=== PATIENT | female | born 1950 | race Caucasian/White ===

== ENCOUNTER 2016-07-16 08:21 | Outpatient (CLI) | payer MEDICARE, BC ==
--- NOTE | 2016-07-17 12:04 | Mammography Report ---
DIGITAL BILATERAL SCREENING MAMMOGRAM: 07/16/2016 CLINICAL HISTORY: A 66-year-old female in for routine screening mammogram. Patient has no family history of breast cancer. Patient has had prior breast surgery. Patient has had a left breast biopsy in approximately 1999. Patient has breast implants and had also implant replacement surgery. Patient has bilateral breast prostheses. COMPARISON: 02/18/2007, 02/08/2008, 03/01/2008, 09/13/2008, 02/07/2009, 2009, 04/11/2010, 05/14/2011, 05/12/2012 TECHNIQUE: Craniocaudad and oblique lateral views of each breast were obtained with Hologic Full Field digital mammography. To compliment the exam, bilateral Fadia views were done in craniocaudad and oblique lateral positions. FINDINGS: Bilateral retropectoral silicone breast prostheses are present. Moderately dense breasts are noted. Some small scattered calcifications are present in the breasts most likely a result of focal fat necrosis. The patient has had her implants replaced and, therefore, has had surgeries involving both breasts in addition to her left breast biopsy surgery. Portions of the breast parenchyma especially on the right show some small focal areas of density adjacent to some of the calcifications. These may represent scarring related to prior surgery or small silicone granulomas. There are also two small densities in the left axilla, one of which may represent a small silicone granuloma. There are also some faint densities resembling calcifications along the posterior, medial, and lateral aspect of the right breast that probably represents small silicone particles. These should be followed with annual mammography to further confirm their benign etiology. No significant masses are detected. IMPRESSION: 1. BILATERAL RETROGLANDULAR SILICONE BREAST PROSTHESES ARE NOTED. 2. SMALL CALCIFICATIONS ARE NOTED IN THE BREASTS IN ASSOCIATION WITH SOME REACTION ADJACENT TO THEM. THESE ARE MORE NUMEROUS IN THE RIGHT BREAST. THESE MAY REPRESENT SMALL SILICONE GRANULOMAS OR FAT NECROSIS A RESULT OF PRIOR IMPLANT REPLACEMENT SURGERY. BIRADS 2 - BENIGN. RECOMMENDATIONS: Annual bilateral screening mammography. STANDARD QUALIFYING STATEMENTS 1. This examination was reviewed with the aid of Computer-Aided Detection (CAD). 2. A negative or benign imaging report should not delay biopsy if clinically suspicious findings are present. Consider surgical consultation if warranted. More than 5% of cancers are not identified by imaging. 3. Dense breasts may obscure an underlying neoplasm. JOB #: [id number] EXT JOB #: [id number] MANUELA
== END 2016-07-16 08:22 | disposition home or self-care (01) ==
LOC: DI 08:21
PROVIDERS: ATTEND Internal Medicine
DX: Z12.31 Encounter for screening mammogram for malignant neoplasm of breast (principal); Z98.82 Breast implant status
CPT/HCPCS: 77067; 93005

== ENCOUNTER 2016-08-06 08:43 | Outpatient (CLI) | payer MEDICARE, BC ==
--- NOTE | 2016-08-06 15:01 | DEXA Report ---
DEXA SCAN: 08/06/2016 CLINICAL INDICATION: Postmenopausal. TECHNIQUE: Dual energy x-ray absorptiometry (DXA) was performed on a [employer] system. Regions measured are the AP spine, femoral neck, and, if needed, forearm. COMPARISON: None. In accordance with the International Society for Clinical Densitometry (ISCD) guidelines, data from previous exams may be reanalyzed using current recommendations and techniques. This is done to allow a more accurate basis for comparison with the current study. FINDINGS: The data for the lumbar spine is as follows: REGION BMD (g/cm/cm) T-SCORE Z-SCORE L1 0.928 -1.7 0.1 L2 1.185 -0.1 1.7 L3 1.184 -0.1 1.7 L4 1.291 0.8 2.6 TOTAL 1.151 -0.2 1.6 NOTE: All evaluable vertebrae are used for classification. The data for the hip is as follows: REGION BMD (g/cm/cm) T-SCORE Z-SCORE Neck 0.745 -2.1 -0.5 TOTAL 0.705 -2.4 -1.0 NOTE: The femoral neck or total proximal femur, whichever is lowest, is used for classification. IMPRESSION: THE WHO CLASSIFICATION BASED ON THE INTERNATIONAL REFERENCE STANDARD IS OSTEOPENIA. THE FRACTURE RISK IS INCREASED. RECOMMENDATION: Patients with diagnosis of osteoporosis or osteopenia should have regular bone mineral density assessment. For those eligible for Medicare, routine testing is allowed once every 2 years. Testing frequency can be increased for patients who have rapidly progressing disease or for those who are receiving medical therapy to restore bone mass. COMMENT: World Health Organization (WHO) definitions for osteoporosis and osteopenia: NORMAL BMD: T-score at -1.0 or higher, fracture risk is low. OSTEOPENIA BMD: T-score between -1.0 and -2.5, fracture risk is increased. OSTEOPOROSIS BMD: T-score at -2.5 or lower, fracture risk high. National Osteoporosis Foundation recommends: 1. Obtain adequate dietary calcium (at least 1200 mg per day) and vitamin D (400 -800 international units per day). 2. Participate, as appropriate, in regular weightbearing and muscle- strengthening exercise. 3. Avoid tobacco use and reduce alcohol and caffeine intake. 4. For more detailed information see the website at www.NOF.org. MTDD
== END 2016-08-06 08:44 | disposition home or self-care (01) ==
LOC: RT 08:43
PROVIDERS: ATTEND Internal Medicine
DX: Z13.820 Encounter for screening for osteoporosis (principal); M85.88 Other specified disorders of bone density and structure, other site; N95.8 Other specified menopausal and perimenopausal disorders; Z13.6 Encounter for screening for cardiovascular disorders
CPT/HCPCS: 77080; 93005

== ENCOUNTER 2017-10-14 09:42 | Outpatient (CLI) | payer MEDICARE, BC | END 2017-10-14 09:43 | disposition home or self-care (01) | LOC: RT 09:42 → DI 09:43 | PROVIDERS: ATTEND Internal Medicine | DX: Z01.810 Encounter for preprocedural cardiovascular examination (principal); Z13.6 Encounter for screening for cardiovascular disorders | CPT/HCPCS: 93005 ==

== ENCOUNTER 2017-11-13 09:24 | Outpatient (CLI) | payer MEDICARE, BC ==
--- NOTE | 2017-11-21 15:08 | Mammography Report ---
Reason: BILAT SCREEN IMPLANTS WITH BRISSA Procedure Date: 11/13/2017 Accession Number: [id number] / [id number] Procedure: DA - Screening Mammo Impl w/Brissa CPT Code: FULL RESULT: EXAM: Screening Mammo Impl w/Brissa DATE: 11/13/2017 10:40 AM CLINICAL HISTORY: 67 year-old nulliparous female with history of early menses and treatment of a left silicone granuloma. TECHNIQUE: Bilateral implant displaced CC and MLO views as well as bilateral CC and MLO views were obtained. COMPARISON: 07/16/2016, 05/12/2012, 05/14/2011, 04/11/2010. FINDINGS: The breasts demonstrate heterogeneously dense fibroglandular parenchyma bilaterally. Bilateral stable appearing prepectoral silicone implants are again demonstrated. There are bilateral typically benign coarse calcifications which are stable. Stable hyperdense nodules predominantly on the right with a have been proven to be silicone granuloma are redemonstrated. No suspicious masses, clustered microcalcifications, or regions of architectural distortion are identified. IMPRESSION: Benign findings RECOMMENDATION: Routine annual screening unless otherwise clinically indicated. BIRADS CATEGORY 2: Benign findings STANDARD QUALIFYING STATEMENTS: 1. This examination was not reviewed with the aid of Computer-Aided Detection (CAD). 2. A negative or benign imaging report should not delay biopsy if clinically suspicious findings are present. Consider surgical consultation if warrented. More than 5% of cancers are not identified by imaging. 3. Dense breasts may obscure an underlying neoplasm. 4. This examination was reviewed with the aid of 3D breast imaging (tomosynthesis).
== END 2017-11-13 09:25 | disposition home or self-care (01) ==
LOC: DI 09:24
PROVIDERS: ATTEND Radiology Diagnostic Radiology
DX: Z12.31 Encounter for screening mammogram for malignant neoplasm of breast (principal); Z98.82 Breast implant status
CPT/HCPCS: 77063; 77067

== ENCOUNTER 2017-11-13 11:08 | Outpatient (CLI) | payer MEDICARE, BC ==
--- NOTE | 2017-11-13 13:58 | XRAY Report ---
Reason: ENCOUNTER FOR OTHER SPECIFIED SPECIAL EXAMINATIONS Procedure Date: 11/13/2017 Accession Number: [id number] / [id number] Procedure: XR - Chest 2 View X-Ray CPT Code: 55413 FULL RESULT: EXAM: CHEST RADIOGRAPHY EXAM DATE: 11/13/2017 11:44 AM. CLINICAL HISTORY: ENCOUNTER FOR OTHER SPECIFIED SPECIAL EXAMINATIONS. COMPARISON: None. TECHNIQUE: 2 views. FINDINGS: Lungs/Pleura: Possible nodule right lower lung field versus anterior rib. No focal opacities evident. No pleural effusion. No pneumothorax. Normal volumes. Right apical pleural thickening. Mediastinum: Heart and mediastinal contours are unremarkable. Other: Dextroscoliosis IMPRESSION: Possible nodule right lower lung versus anterior rib RADIA
== END 2017-11-13 11:09 | disposition home or self-care (01) ==
LOC: DI 11:08
PROVIDERS: ATTEND Internal Medicine
DX: Z01.89 Encounter for other specified special examinations (principal); Z13.6 Encounter for screening for cardiovascular disorders; N64.59 Other signs and symptoms in breast; T85.9XXA Unspecified complication of internal prosthetic device, implant and graft, initial encounter
CPT/HCPCS: 71046

== ENCOUNTER 2018-03-19 08:32 | Outpatient (CLI) | payer MEDICARE, BC ==
--- NOTE | 2018-03-19 12:28 | XRAY Report ---
Reason: SOLITARY PULMONARY NODULE Procedure Date: 03/19/2018 Accession Number: [id number] / [id number] Procedure: XR - Chest 2 View X-Ray CPT Code: 35694 FULL RESULT: EXAM: CHEST RADIOGRAPHY EXAM DATE: 03/19/2018 08:53 AM. CLINICAL HISTORY: POSSIBLE SOLITARY PULMONARY NODULE. COMPARISON: Chest 11/13/2017. TECHNIQUE: 2 views. FINDINGS: Lungs/Pleura: Again seen is a nodular density about the lower right lung. It is somewhat ill-defined and difficult to measure. It appears without change, however. No pneumothorax or pleural effusion. Lung volumes are somewhat large. Mediastinum: Heart and mediastinal contours are unremarkable. There is lateral curvature of the thoracolumbar spine. IMPRESSION: Right lower lung nodule versus rib. No change compared to 11/13/2017. May consider follow-up, for example October 2018. Large lung volumes may be on the basis of COPD. RADIA
== END 2018-03-19 08:33 | disposition home or self-care (01) ==
LOC: DI 08:32
PROVIDERS: ATTEND Internal Medicine
DX: R91.1 Solitary pulmonary nodule (principal)
CPT/HCPCS: 71046

== ENCOUNTER 2018-12-07 09:46 | Outpatient (CLI) | payer MEDICARE, BC ==
[2018-12-07 11:09] LABS: VBG PH 7.39 (7.31-7.41)
[2018-12-07 11:10] LABS: EOSINOPHILS # (AUTO) 0.1 10^3/uL (0.0-0.7); EOSINOPHILS % (AUTO) 2.3 %; HGB - HEMOGLOBIN 12.8 g/dL (12.0-16.0); LYMPHOCYTES # (AUTO) 1.7 10^3/uL (1.5-3.5); LYMPHOCYTES % (AUTO) 45.4 %; MEAN CORPUSCULAR HEMOGLOBIN 29.9 pg (27.0-31.0); MEAN CORPUSCULAR VOLUME 93.5 fL (81.0-99.0); MONOCYTES # (AUTO) 0.4 10^3/uL (0.0-1.0); MONOCYTES % (AUTO) 10.7 %; NEUTROPHILS # (AUTO) 1.6 10^3/uL (1.5-6.6); NEUTROPHILS % (AUTO) 40.6 %; PLT - PLATELET COUNT 285 10^3/uL (130-450); RED BLOOD COUNT 4.28 10^6/uL (4.20-5.40); RED CELL DISTRIBUTION WIDTH 12.8 % (12.0-15.0); WHITE BLOOD COUNT 3.8 x10^3/uL (4.8-10.8)
[2018-12-07 11:19] LABS: ALBUMIN 4.5 g/dL (3.2-5.5); ALBUMIN/GLOBULIN RATIO 1.6 (1.0-2.2); BILIRUBIN,TOTAL 0.5 mg/dL (0.2-1.0); CALCIUM 9.6 mg/dL (8.5-10.3); CREATININE 0.6 mg/dL (0.4-1.0); TOTAL PROTEIN 7.4 g/dL (6.7-8.2)
== END 2018-12-07 09:47 | disposition home or self-care (01) ==
LOC: LAB.S 09:46 → LAB 09:47
PROVIDERS: ATTEND Internal Medicine
DX: E83.52 Hypercalcemia (principal)
CPT/HCPCS: 36415; 80053; 82306; 82330; 83519; 83970; 85025

== ENCOUNTER 2019-03-13 12:30 | Outpatient (CLI) | payer MEDICARE, BC ==
--- NOTE | 2019-03-14 14:23 | XRAY Report ---
Reason: SCOLIOSIS Procedure Date: 03/13/2019 Accession Number: [id number] / [id number] Procedure: XR - Lumbar Spine 2 View CPT Code: Final Report FULL RESULT: EXAM: LUMBAR SPINE RADIOGRAPHY EXAM DATE: 03/13/2019 01:11 PM HISTORY: SCOLIOSIS. COMPARISON: XR LUMBAR SPINE 2 OR 3 VIEWS 09/21/2009 1:08 PM TECHNIQUE: AP and Lateral two view exam FINDINGS: Moderate to severe convex left scoliosis centered at the L1-L2 level. There is corresponding diffuse degenerative disk disease with disk space narrowing most prominent at the concave margin of the upper lumbar spine and concave aspect of the lower lumbar spine. Moderate to large osteophyte formation is seen. Endplate sclerotic changes are noted. There has been significant progression of disease since the previous exam. There is probably moderate to severe facet osteoarthritis from L3-S1. No definitive acute fracture but there is some suggestion of a compression deformity of L2. If there is concern for acute fracture, CT should be done. IMPRESSION: Progressive scoliosis and diffuse degenerative disk disease. Mild compression deformity at L2 is probably old but there is limited visualization because of positioning and degenerative changes. Consider CT follow-up if clinically warranted. RADIA
--- NOTE | 2019-03-14 14:48 | XRAY Report ---
Reason: SCOLIOSIS Procedure Date: 03/13/2019 Accession Number: [id number] / [id number] Procedure: XR - Thoracic Spine 2 View CPT Code: Final Report FULL RESULT: EXAM: THORACIC SPINE RADIOGRAPHY EXAM DATE: 03/13/2019 01:09 PM HISTORY: SCOLIOSIS. TECHNIQUE: AP and lateral two view exam COMPARISON: CHEST 2 VIEW 03/19/2018 8:38 AM FINDINGS: Mild upper thoracic dextroconvexity noted with the apex centered at T5. There is some straightening of the thoracic kyphosis through most of the thoracic spine with mild kyphosis noted at the thoracolumbar level. Moderate thoracolumbar levo convexity seen with the apex centered at L1-L2. No apparent thoracic vertebral body fracture. There is probably mild diffuse disk space narrowing of the mid to lower thoracic levels. Assessment is somewhat limited because of curvature. Other: None. IMPRESSION: -Mild upper to mid thoracic dextroconvexity. - Moderate thoracolumbar levo convexity. -Mild mid to lower thoracic degenerative disk disease. RADIA
== END 2019-03-13 12:31 | disposition home or self-care (01) ==
LOC: DI 12:30
PROVIDERS: ATTEND Internal Medicine
DX: M47.816 Spondylosis without myelopathy or radiculopathy, lumbar region (principal); M47.817 Spondylosis without myelopathy or radiculopathy, lumbosacral region; M51.36 Other intervertebral disc degeneration, lumbar region; M41.9 Scoliosis, unspecified; M43.8X6 Other specified deforming dorsopathies, lumbar region; M51.34 Other intervertebral disc degeneration, thoracic region
CPT/HCPCS: 72070; 72100

== ENCOUNTER 2019-08-21 11:51 | Outpatient (CLI) | payer MEDICARE, BC ==
--- NOTE | 2019-08-21 18:55 | XRAY Report ---
PROCEDURE: Foot 2 View LT INDICATIONS: LT FOOT PAIN TECHNIQUE: 2 views of the foot were acquired. COMPARISON: None FINDINGS: Bones: No fractures or dislocations. No suspicious bony lesions. Soft tissues: No tibiotalar joint effusion. Achilles tendon appears normal. IMPRESSION: No evidence acute bony abnormality of the left foot. Reviewed by: Arnold Zapata MD on 08/21/2019 5:54 PM KEL Approved by: Arnold Zapata MD on 08/21/2019 5:54 PM KEL Station ID: [id number]
== END 2019-08-21 11:52 | disposition home or self-care (01) ==
LOC: DI 11:51
PROVIDERS: ATTEND Internal Medicine
DX: M79.672 Pain in left foot (principal)

== ENCOUNTER 2020-06-14 12:53 | Outpatient (CLI) | payer MEDICARE, BC ==
--- NOTE | 2020-06-20 10:15 | DEXA Report ---
PROCEDURE: Dexa Spine and/or Hip INDICATIONS: OSTEOPOROSIS: FOREARM INCLUDED TECHNIQUE: Dual energy x-ray absorptiometry (DXA) was performed on a [employer] System. Regions measur ed are the AP Spine, femoral neck, and if needed forearm. COMPARISON: None. FINDINGS: Left forearm included secondary to lumbar scoliosis and degenerative discogenic changes Left Femoral Neck: Bone Mineral Density 0.760 g/cm/cm, T score -2.0, Left forearm: Radius bone Mineral Density 0.5-0 g/cm/cm, T score -2.5, (T score greater or equal to -1.0: NORMAL) (T score from -1.1 to -2.4: OSTEOPENIA) (T score less than or equal to -2.5 to: OSTEOPOROSIS) Impression: Osteoporosis Patients with diagnosis of osteoporosis or osteopenia should have regular bone mineral density assess ment. For those eligible for Medicare, routine testing is allowed once every 2 years. Testing frequ ency can be increased for patients who have rapidly progressing disease or for those who are receivin g medical therapy to restore bone mass. Reviewed by: Antony Solis MD on 06/14/2020 2:01 PM PDT Approved by: Antony Solis MD on 06/14/2020 2:01 PM PDT Station ID: [id number]
== END 2020-06-14 12:54 | disposition home or self-care (01) ==
LOC: DI 12:53
PROVIDERS: ATTEND Internal Medicine
DX: M81.0 Age-related osteoporosis without current pathological fracture (principal)

== ENCOUNTER 2020-06-14 12:55 | Outpatient (CLI) | payer MEDICARE, BC ==
--- NOTE | 2020-06-15 11:11 | Mammography Report ---
BILATERAL DIGITAL SCREENING MAMMOGRAM 3D/2D WITH AUGMENTATION: 06/14/2020 CLINICAL: Routine screening. Comparison is made to exams dated: 11/13/2017 mammogram, 07/16/2016 mammogram, and 05/12/2012 mammogram - [facility]. There are scattered fibroglandular elements in both breasts. Bilateral breast implants are present. No significant masses, calcifications, or other findings are seen in either breast. There has been no significant interval change. IMPRESSION: NEGATIVE There is no mammographic evidence of malignancy. A 1 year screening mammogram is recommended. This exam was interpreted at Station ID: [id number]. NOTE: For mammograms, a report in lay terms will be sent to the patient. Approximately 15% of breast malignancies will not be visualized mammographically. In the management of a palpable breast mass, a negative mammogram must not discourage biopsy of a clinically suspicious lesion. Electronically Signed By: Hima Torres M.D. ar/penrad:06/14/2020 14:41:09 ACR BI-RADS Category 1: Negative 3341F PARENCHYMAL PATTERN: (A) - The breast(s) demonstrate(s) scattered fibroglandular densities. BI-RADS CATEGORY: (1) - 1 RECOMMENDATION: (ANNUAL) - Recommend routine annual screening mammography. [id number] 1 year screening LATERALITY: (B)
== END 2020-06-14 12:56 | disposition home or self-care (01) ==
LOC: DI 12:55
PROVIDERS: ATTEND Internal Medicine
DX: Z12.31 Encounter for screening mammogram for malignant neoplasm of breast (principal)

== ENCOUNTER 2020-11-16 13:09 | Outpatient (CLI) | payer MEDICARE, BC ==
--- NOTE | 2020-11-16 14:03 | XRAY Report ---
PROCEDURE: Foot 3 View LT INDICATIONS: FOOT PAIN, LEFT TECHNIQUE: 3 views of the foot were acquired. COMPARISON: X-ray ankle 11/16/2020 FINDINGS: Bones: No fractures or dislocations. No suspicious bony lesions. Soft tissues: No tibiotalar joint effusion. Achilles tendon appears normal. IMPRESSION: No visualized acute fracture or dislocation. However, occult injury cannot be excluded. Recommend gail rt interval imaging follow-up in 7-10 days as clinically indicated for additional evaluation. Reviewed by: Rachael Valerio MD on 11/16/2020 2:02 PM PDT Approved by: Rachael Valerio MD on 11/16/2020 2:02 PM PDT Station ID: [id number]
--- NOTE | 2020-11-16 14:28 | XRAY Report ---
PROCEDURE: Ankle 3 View LT INDICATIONS: FOOT PAIN, LEFT TECHNIQUE: 3 views of the ankle were acquired. COMPARISON: None FINDINGS: Bones: Nondisplaced fracture to the distal fibular metaphysis noted. Minimal soft tissue in the fract ure line noted. No soft tissue swelling. Ankle mortise is maintained. Soft tissues: No tibiotalar joint effusion. Achilles tendon appears normal. IMPRESSION: Nondisplaced distal fibular fracture without soft tissue swelling probably reflects suba cute fracture. Reviewed by: Amanuel Ohara MD on 11/16/2020 1:27 PM KEL Approved by: Amanuel Ohara MD on 11/16/2020 1:27 PM KEL Station ID: [id number]
== END 2020-11-16 23:59 | disposition home or self-care (01) ==
LOC: DI.S 13:09
PROVIDERS: ATTEND Physician Assistant Medical
DX: S82.832A Other fracture of upper and lower end of left fibula, initial encounter for closed fracture (principal)

== ENCOUNTER 2022-10-09 13:20 | Outpatient (CLI) | payer MEDICARE, BC ==
--- NOTE | 2022-10-10 12:25 | Mammography Report ---
BILATERAL DIGITAL SCREENING MAMMOGRAM 3D/2D WITH AUGMENTATION: 10/09/2022 CLINICAL: Routine screening. Comparison is made to exams dated: 06/14/2020 mammogram, 11/13/2017 mammogram, 07/16/2016 mammogram, an d 05/12/2012 mammogram - [facility]. There are scattered areas of fibroglandular density in both breasts (category b / 25%-50% glandular t issue). There is an asymmetry in the left breast anterior depth lateral region seen on the craniocaudal view only. No other significant masses, calcifications, or other findings are seen in either breast. IMPRESSION: INCOMPLETE: NEEDS ADDITIONAL IMAGING EVALUATION The asymmetry in the left breast is indeterminate. Additional views with possible ultrasound are rec ommended. Based on the Tyrer Cuzick model (a risk assessment model) the patients lifetime risk is 5.7% and her 10 year risk is 3.9%. According to the ACR, ACS, and NCCN guidelines, an annual breast MRI exam joaquim g with mammogram is recommended if the patients lifetime risk is 20% or greater. This exam was interpreted at Station ID: [id number]. NOTE: For mammograms, a report in lay terms will be sent to the patient. Approximately 15% of breast malignancies will not be visualized mammographically. In the management of a palpable breast mass, a negative mammogram must not discourage biopsy of a clinically suspicious lesion. Electronically Signed By: Michael Garcia M.D. lc/:10/09/2022 16:22:08 ACR BI-RADS Category 0: Incomplete 3340F PARENCHYMAL PATTERN: (A) - The breast(s) demonstrate(s) scattered fibroglandular densities. BI-RADS CATEGORY: (0) - 0 Mammo and [place] [id number] Immediate follow-up LATERALITY: (B)
== END 2022-10-09 13:21 | disposition home or self-care (01) ==
LOC: DI 13:20
PROVIDERS: ATTEND Internal Medicine
DX: Z12.31 Encounter for screening mammogram for malignant neoplasm of breast (principal); R92.8 Other abnormal and inconclusive findings on diagnostic imaging of breast

== ENCOUNTER 2022-10-09 13:20 | Outpatient (CLI) | payer MEDICARE, BC ==
--- NOTE | 2022-10-09 16:51 | DEXA Report ---
PROCEDURE: Dexa Spine and/or Hip INDICATIONS: MENOPAUSAL TECHNIQUE: Dual energy x-ray absorptiometry (DXA) was performed on a [employer] System. Regions measur ed are the AP Spine, femoral neck, and if needed forearm. COMPARISON: 06/14/2020 FINDINGS: Lumbar Spine: Bone Mineral Density 1.2 g/cm/cm,T score -0.1. Normal bone density Left Forearm: Bone Mineral Density 0.5 g/cm/cm, T score 0.7. Normal bone density Impression: By WHO criteria, this patient has normal bone density of the lumbar spine and left forearm Patients with diagnosis of osteoporosis or osteopenia should have regular bone mineral density assess ment. For those eligible for Medicare, routine testing is allowed once every 2 years. Testing frequ ency can be increased for patients who have rapidly progressing disease or for those who are receivin g medical therapy to restore bone mass. Reviewed by: Evelyne Romero MD on 10/09/2022 4:50 PM PDT Approved by: Evelyne Romero MD on 10/09/2022 4:50 PM PDT Station ID: [id number]
== END 2022-10-09 13:21 | disposition home or self-care (01) ==
LOC: DI 13:20
PROVIDERS: ATTEND Internal Medicine
DX: N95.9 Unspecified menopausal and perimenopausal disorder (principal)

== ENCOUNTER 2022-11-01 12:09 | Outpatient (CLI) | payer MEDICARE, BC ==
--- NOTE | 2022-11-04 12:49 | Mammography Report ---
UNILATERAL LEFT DIGITAL DIAGNOSTIC MAMMOGRAM 3D/2D WITH AUGMENTATION: 11/01/2022 CLINICAL: Patient returns today to evaluate an asymmetry in the left breast. Comparison is made to exams dated: 10/09/2022 mammogram, 06/14/2020 mammogram, and 11/13/2017 mammogram - [facility]. There are scattered areas of fibroglandular density in the left breast (category b / 25%-50% glandula r tissue). The oval asymmetry in the left breast anterior depth lateral region seen on the craniocaudal view onl y is no longer seen. This was only seen on the non-implant displaced view which was repeated today u sing tomosynthesis and the previously described asymmetry represented a focal area of tortuous vessel . No other significant masses or calcifications are seen in the breast. IMPRESSION: NEGATIVE No mammographic evidence for malignancy. A 1 year screening mammogram is recommended. Findings and recommendations were conveyed to the patient during today's evaluation. Based on the Tyrer Cuzick model (a risk assessment model) the patients lifetime risk is 5.7% and her 10 year risk is 3.9%. According to the ACR, ACS, and NCCN guidelines, an annual breast MRI exam joaquim g with mammogram is recommended if the patients lifetime risk is 20% or greater. This exam was interpreted at Station ID: [id number]. NOTE: For mammograms, a report in lay terms will be sent to the patient. Approximately 15% of breast malignancies will not be visualized mammographically. In the management of a palpable breast mass, a negative mammogram must not discourage biopsy of a clinically suspicious lesion. Electronically Signed By: Ti Reeder M.D. aty/:11/01/2022 13:36:05 Entry: - 11/04/2022 10:47:55 ACR BI-RADS Category 1: Negative 3341F PARENCHYMAL PATTERN: (A) - The breast(s) demonstrate(s) scattered fibroglandular densities. BI-RADS CATEGORY: (1) - 1 Mammogram [id number] 1 year screening LATERALITY: (B)
== END 2022-11-01 12:10 | disposition home or self-care (01) ==
LOC: DI 12:09
PROVIDERS: ATTEND Internal Medicine
DX: R92.2 Inconclusive mammogram (principal)

== ENCOUNTER 2023-04-22 08:00 | Outpatient (CLI) | payer MEDICARE, BC ==
[2023-04-22 14:43] LABS: BILIRUBIN,URINE NEGATIVE (NEGATIVE); GLUCOSE, URINE (UA) NEGATIVE (NEGATIVE); KETONES,URINE (UA) NEGATIVE (NEGATIVE); LEUKOCYTE ESTERASE, URINE NEGATIVE (NEGATIVE); NITRITE,URINE NEGATIVE (NEGATIVE); OCCULT BLOOD,URINE NEGATIVE (NEGATIVE); PH,URINE 6.5 PH (5.0-7.5); PROTEIN,URINE NEGATIVE (NEGATIVE); UROBILINOGEN,URINE 0.2 (NORMAL) E.U./dL (NORMAL)
[2023-04-22 15:00] LABS: CLARITY,URINE CLEAR (CLEAR)
[2023-04-22 15:39] LABS: BACTERIA,URINE None Seen /HPF (None Seen); RBC,URINE 0-5 /HPF (0-5); SQUAMOUS EPITHELIAL CELL,UR NONE SEEN (<= Few); WBC,URINE 0-3 /HPF (0-5)
== END 2023-04-22 23:59 | disposition home or self-care (01) ==
LOC: LAB.S 08:00
PROVIDERS: ATTEND Emergency Medicine
DX: R30.0 Dysuria (principal)
CPT/HCPCS: 81001; 87086

== ENCOUNTER 2023-06-23 08:00 | Outpatient (CLI) | payer MEDICARE, BC | END 2023-06-23 23:59 | disposition home or self-care (01) | LOC: LAB.S 08:00 | PROVIDERS: ATTEND Nurse Practitioner | DX: N39.0 Urinary tract infection, site not specified (principal) | CPT/HCPCS: 87086 ==